=== PATIENT | male | born 1995 | race Caucasian/White ===

== ENCOUNTER 2018-07-15 06:41 | Emergency (ER) | payer MEDICAID, OTHER ==
[~2018-07-15] VITALS: Ht 177.8 cm; Wt 81.6 kg
[~2018-07-15 06:41] MED LIST: [UNRECOGNIZED DRUG - CODE]
[2018-07-15 06:49] VITALS: BP 121/73
[2018-07-15] MEDS ORDERED: KETOROLAC 60 MG/2 ML VIAL IM ONE (07:50)
[2018-07-15 08:10] VITALS: BP 138/86
== END 2018-07-15 08:10 | disposition home or self-care (01) ==
LOC: MED 06:41
DX: J06.9 Acute upper respiratory infection, unspecified (principal); R42 Dizziness and giddiness; Z79.899 Other long term (current) drug therapy
CPT/HCPCS: 71045; 96372; 99283; J1885; Q0092

== ENCOUNTER 2019-07-19 18:42 | Emergency (ER) | payer OTHER ==
[~2019-07-19] VITALS: Ht 177.8 cm; Wt 84.8 kg
[2019-07-19 19:00] VITALS: BP 136/77
[2019-07-19] MEDS ORDERED: ACETAMINOPHEN EXTRA STRENGTH 500 MG TAB PO ONE (19:00)
--- NOTE | 2019-07-19 19:02 | NUR ---
FLU SWAB COLLECTED AND SENT TO LAB
--- NOTE | 2019-07-19 19:55 | NUR ---
ASSESSMENT COMPLETED, PATIENT SITTING UP IN CHAIR. NO NEEDS ADDRESSED AT THIS TIME.
--- NOTE | 2019-07-19 19:57 | NUR ---
Dr. Munson examining patient.
--- NOTE | 2019-07-19 20:07 | NUR ---
Patient discharged with v/s stable. Written and verbal after care instructions given and explained. Patient alert, oriented and verbalized understanding of instructions. Ambulatory with steady gait. All questions addressed prior to discharge. ID band removed. Patient advised to follow up with PMD. Rx of TAMIFLU, PROMETHAZINE, IBUPROFEN given. Patient educated on indication of medication including possible reaction and side effects. Opportunity to ask questions provided and answered.
[2019-07-19 20:08] VITALS: BP 125/88
== END 2019-07-19 20:07 | disposition home or self-care (01) ==
LOC: MED 18:42
DX: J10.1 Influenza due to other identified influenza virus with other respiratory manifestations (principal); Z79.899 Other long term (current) drug therapy
CPT/HCPCS: 87804; 99283